=== PATIENT | female | born 1995 | race Caucasian/White ===

== ENCOUNTER 2020-04-11 14:51 | Emergency (ER) | payer OTHER ==
[2020-04-11 15:19] LABS: BASOPHILS % (AUTO) 0.6 %; EOSINOPHILS # (AUTO) 0.2 10^3/uL (0.0-0.7); EOSINOPHILS % (AUTO) 2.9 %; HGB - HEMOGLOBIN 13.1 g/dL (12.0-16.0); MEAN CORPUSCULAR HEMOGLOBIN 31.3 pg (27.0-31.0); MEAN CORPUSCULAR HGB CONC 34.5 g/dL (32.0-36.0); MEAN CORPUSCULAR VOLUME 90.9 fL (81.0-99.0); MEAN PLATELET VOLUME 9.7 fL (7.9-10.8); MONOCYTES # (AUTO) 0.5 10^3/uL (0.0-1.0); MONOCYTES % (AUTO) 8.2 %; NEUTROPHILS # (AUTO) 3.5 10^3/uL (1.5-6.6); NEUTROPHILS % (AUTO) 56.1 %; PLT - PLATELET COUNT 258 10^3/uL (130-450); RED BLOOD COUNT 4.18 10^6/uL (4.20-5.40); RED CELL DISTRIBUTION WIDTH 12.2 % (12.0-15.0); WHITE BLOOD COUNT 6.2 x10^3/uL (4.8-10.8)
--- NOTE | 2020-04-11 15:23 | ED Physician Documentation ---
History of Present Illness - Stated complaint Stated Complaint: FEMALE / BLEEDING - Chief complaint Chief Complaint: Abd Pain - History obtained from History obtained from: Patient - History of Present Illness Timing: How many weeks ago (6) Pain level max: 0 Pain level now: 0 - Additonal information Additional information: Patient is a 25-year-old female who presents to the emergency department after having a "chemical " At [facility] approximately 6 weeks ago. She had an ultrasound 4 weeks ago which apparently showed some possible retained clot. She has had intermittent vaginal bleeding since that time. Today she had a large clot fall onto the toilet followed by heavy bleeding. She became lightheaded. No chest pain. No difficulty breathing. Nothing makes it better or worse. She is currently on Clary for control. No fevers. No vaginal discharge. 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: Yes - POLST Patient has POLST: No PD ED PE NORMAL - Vitals Vital signs reviewed: Yes - General General: Alert and oriented X 3, No acute distress, Well developed/nourished - HEENT HEENT: PERRL, Moist mucous membranes - Neck Neck: Supple, no meningeal sign - Cardiac Cardiac: RRR, Strong equal pulses - Respiratory Respiratory: No respiratory distress, Clear bilaterally - Abdomen Abdomen: Soft, Non tender, Non distended - 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 Clots removed. No further active bleeding.) - Derm Derm: Warm and dry - Extremities Extremities: No edema, No calf tenderness / cord - Neuro Neuro: Alert and oriented X 3 - Psych Psych: Normal mood, Normal affect Results - Vitals Vitals: Vital Signs - 24 hr 04/11/20 04/11/20 04/11/20 14:56 15:19 16:35 Temperature 36.5 C Heart Rate 78 73 74 Respiratory 14 15 18 Rate Blood Pressure 123/69 95/74 108/65 O2 Saturation 98 98 100 Oxygen O2 Source Room air - Labs Labs: Laboratory Tests 04/11/20 04/11/20 04/11/20 15:11 15:11 15:11 WBC 6.2 RBC 4.18 L Hgb 13.1 Hct 38.0 MCV 90.9 MCH 31.3 H MCHC 34.5 RDW 12.2 Plt Count 258 MPV 9.7 Neut # (Auto) 3.5 Lymph # (Auto) 2.0 [place] # (Auto) 0.5 Eos # (Auto) 0.2 Baso # (Auto) 0.0 Absolute Nucleated RBC 0.00 Nucleated RBC % 0.0 Sodium 137 Potassium 3.7 Chloride 103 Carbon Dioxide 25 Anion Gap 9.0 BUN 16 Creatinine 0.6 Estimated GFR (MDRD) 121 Glucose 92 Calcium 9.0 Total Bilirubin 0.5 AST 26 ALT 37 Alkaline Phosphatase 54 Total Protein 8.0 Albumin 4.1 Globulin 3.9 Albumin/Globulin Ratio 1.1 Lipase 41 HCG, Quant 11.72 Urine Color Urine Clarity Urine pH Ur Specific [place] Urine Protein Urine Glucose (UA) Urine Ketones Urine Occult Blood Urine Nitrite Urine Bilirubin Urine Urobilinogen Ur Leukocyte Esterase Urine RBC Urine WBC Ur Squamous Epith Cells Urine Bacteria Ur Microscopic Review Urine Culture Comments 04/11/20 15:11 WBC RBC Hgb Hct MCV MCH MCHC RDW Plt Count MPV Neut # (Auto) Lymph # (Auto) [place] # (Auto) Eos # (Auto) Baso # (Auto) Absolute Nucleated RBC Nucleated RBC % Sodium Potassium Chloride Carbon Dioxide Anion Gap BUN Creatinine Estimated GFR (MDRD) Glucose Calcium Total Bilirubin AST ALT Alkaline Phosphatase Total Protein Albumin Globulin Albumin/Globulin Ratio Lipase HCG, Quant Urine Color RED/BLOODY Urine Clarity CLOUDY Urine pH 8.5 H Ur Specific [place] 1.020 Urine Protein 30 H Urine Glucose (UA) NEGATIVE Urine Ketones NEGATIVE Urine Occult Blood LARGE H Urine Nitrite NEGATIVE Urine Bilirubin NEGATIVE Urine Urobilinogen 1 (NORMAL) Ur Leukocyte Esterase NEGATIVE Urine RBC TNTC H Urine WBC 0-3 Ur Squamous Epith Cells NONE SEEN Urine Bacteria Rare Ur Microscopic Review INDICATED Urine Culture Comments NOT INDICATED PD MEDICAL DECISION MAKING - ED course Complexity details: reviewed results, re-evaluated patient, considered differential, d/w patient, d/w hearing consultant (Dr. Parekh) ED course: `Patient with what appears to be dysfunctional uterine bleeding after a chemical 6 weeks ago. hCG is 11. Discussed the case with OB, they recommend follow-up in 1 week for repeat hCG to make sure it goes to 0. No uterine tenderness. No fever. No evidence of retained products or endometritis. She did have an ultrasound 2 weeks after the . Patient counseled regarding signs and symptoms for which I believe and urgent re-evaluation would be necess cheri. Patient with good understanding of and agreement to plan and is comfortable going home at this time This document was made in part using voice recognition software. While efforts are made to proofread this document, sound alike and grammatical errors may occur. Departure - Departure Disposition: 01 Home, Self Care Clinical Impression: Dysfunctional uterine bleeding Condition: Good Instructions: ED Bleed Irregular Vaginal Follow-Up: [facility] [Provider Group] - Within 1 week Comments: Follow-up with gynecology within 1 week for repeat hCG. Return if you worsen. This should continue to improve. I spoke with Dr. Izabella bailey. Discharge Date/Time: 04/11/20 16:55
[2020-04-11 15:29] LABS: BILIRUBIN,URINE NEGATIVE (NEGATIVE); GLUCOSE, URINE (UA) NEGATIVE (NEGATIVE); KETONES,URINE (UA) NEGATIVE (NEGATIVE); LEUKOCYTE ESTERASE, URINE NEGATIVE (NEGATIVE); NITRITE,URINE NEGATIVE (NEGATIVE); OCCULT BLOOD,URINE LARGE (NEGATIVE); PH,URINE 8.5 PH (5.0-7.5); PROTEIN,URINE 30 mg/dL (NEGATIVE); UROBILINOGEN,URINE 1 (NORMAL) E.U./dL (NORMAL)
[2020-04-11 15:32] LABS: ALBUMIN 4.1 g/dL (3.2-5.5); ALBUMIN/GLOBULIN RATIO 1.1 (1.0-2.2); BILIRUBIN,TOTAL 0.5 mg/dL (0.2-1.0); CREATININE 0.6 mg/dL (0.4-1.0)
[2020-04-11 15:41] LABS: BACTERIA,URINE Rare /HPF (None Seen); CLARITY,URINE CLOUDY (CLEAR); RBC,URINE TNTC /HPF (0-5); SQUAMOUS EPITHELIAL CELL,UR NONE SEEN (<= Few)
[2020-04-11 16:35] VITALS: BP 108/65
== END 2020-04-11 16:55 | disposition home or self-care (01) ==
LOC: ED 14:51
DX: N93.8 Other specified abnormal uterine and vaginal bleeding (principal); Z98.890 Other specified postprocedural states
CPT/HCPCS: 36415; 80053; 81001; 81003; 83690; 84702; 85025; 86900; 86901; 87086; 99283; 99284

== ENCOUNTER 2020-10-07 08:00 | Outpatient (CLI) | payer OTHER ==
[2020-10-07 17:44] LABS: BILIRUBIN,URINE NEGATIVE (NEGATIVE); GLUCOSE, URINE (UA) NEGATIVE (NEGATIVE); KETONES,URINE (UA) NEGATIVE (NEGATIVE); LEUKOCYTE ESTERASE, URINE NEGATIVE (NEGATIVE); NITRITE,URINE NEGATIVE (NEGATIVE); OCCULT BLOOD,URINE NEGATIVE (NEGATIVE); PH,URINE 6.5 PH (5.0-7.5); PROTEIN,URINE NEGATIVE (NEGATIVE); UROBILINOGEN,URINE 0.2 (NORMAL) E.U./dL (NORMAL)
[2020-10-07 17:48] LABS: CLARITY,URINE SL. CLOUDY (CLEAR)
[2020-10-07 17:58] LABS: BACTERIA,URINE Moderate /HPF (None Seen); RBC,URINE 0-5 /HPF (0-5); SQUAMOUS EPITHELIAL CELL,UR MANY Squamous (<= Few)
== END 2020-10-07 23:59 | disposition home or self-care (01) ==
LOC: LAB.R 08:00
PROVIDERS: ATTEND Nurse Practitioner Obstetrics & Gynecology
DX: Z32.01 Encounter for pregnancy test, result positive (principal)
CPT/HCPCS: 81001; 81003; 87086

== ENCOUNTER 2020-10-21 07:12 | Outpatient (CLI) | payer OTHER ==
--- NOTE | 2020-10-21 10:27 | Ultrasound Report ---
PROCEDURE: OB First Trimester INDICATIONS: POSITIVE TEST OUTSIDE/PRIOR DATING DATA: Last menstrual period (LMP): 08/08/2020. LMP-based estimated date of delivery (KATHRIN): 05/15/2020. First dating scan (date and location): 10/21/2020. Estimated date of delivery (KATHRIN) from first dating scan: 05/22/2021. TECHNIQUE: Real-time scanning was performed of the fetus and maternal pelvic organs, with image documentation. COMPARISON: None FINDINGS: Embryo: Single live intrauterine with crown-rump length measuring 2.8 cm corresponding to 9 weeks 4 days. Heart rate is identified at 169 bpm. Small focus of subchorionic hemorrhage is identi fied measuring 17 x 8 x 7 mm. Measurement variability in dating: +/- 4 weeks by LMP, +/- 7 days by mean sac diameter (use before 6 weeks gestation if crown-rump length not able to be measured), +/- 5 days by crown-rump length (6-12 weeks gestation). Maternal organs: Ovaries demonstrate a right corpus luteal cyst.. Nabothian cyst is noted. Limited images through the kidneys demonstrate no hydronephrosis. IMPRESSION: 1. Single live intrauterine with ultrasound gestational age of 9 weeks 4 days corresponding to ultrasound KATHRIN of 05/22/2021. 2. Small subchorionic hemorrhage. 3. Recommend follow-up imaging at 20-22 weeks for dates and anatomy. Reviewed by: Shannan Price MD on 10/21/2020 10:26 AM PST Approved by: Shannan Price MD on 10/21/2020 10:26 AM PST Station ID: [id number]
== END 2020-10-21 07:13 | disposition home or self-care (01) ==
LOC: DI 07:12
PROVIDERS: ATTEND Nurse Practitioner Obstetrics & Gynecology
DX: Z32.01 Encounter for pregnancy test, result positive (principal)

== ENCOUNTER 2020-10-25 08:00 | Outpatient (CLI) | payer OTHER ==
[2020-10-26 22:06] LABS: TRICHOMONAS VAGINALIS DNA NEGATIVE (NEGATIVE)
== END 2020-10-26 23:59 | disposition home or self-care (01) ==
LOC: LAB.R 08:00
PROVIDERS: ATTEND Obstetrics & Gynecology
DX: Z11.3 Encounter for screening for infections with a predominantly sexual mode of transmission (principal)
CPT/HCPCS: 87491; 87591; 87661

== ENCOUNTER 2020-11-08 10:06 | Emergency (ER) | payer OTHER ==
--- NOTE | 2020-11-08 10:19 | ED Physician Documentation ---
PD HPI NVD - Stated complaint Stated Complaint: HEAD PX - Chief complaint Chief Complaint: Neuro - History obtained from History obtained from: Patient - History of Present Illness Timing - onset: How many days ago (3) Timing - duration: Days (3) Timing - details: Gradual onset, Still present Associated symptoms: Loss of appetite, Other (onset of left headache along with the N/V, some photosensitivity.). No: Fever, Abdominal pain Improved by: No: Vomiting Worsened by: Eating, Other (lights) Similar symptoms before: Diagnosis (occasional migraines in the past. This is first with this .) Recently seen: Not recently seen Review of Systems Constitutional: denies: Fever, Chills Nose: denies: Rhinorrhea / runny nose, Congestion Throat: denies: Sore throat Respiratory: denies: Cough GI: reports: Nausea, Vomiting. denies: Abdominal Pain, Diarrhea : reports: Now EGA (12). denies: Discharge, Vaginal bleeding Skin: denies: Rash, Lesions Neurologic: reports: Generalized weakness, Headache. 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 - Present Medications Home Medications: Ambulatory Orders Medication Instructions Recorded Confirmed HYDROcod/ACETAM 5/325 [Seney 5/325] 1 ea PO Q6H PRN #8 tablet 11/08/20 Ondansetron Odt [Zofran] 4 mg TL Q6H PRN #10 tablet 11/08/20 No122/Iron/Folic Acid 1 each PO DAILY 11/08/20 11/08/20 [ Multi Tablet] - Allergies Allergies/Adverse Reactions: Allergies Allergy/AdvReac Type Severity Reaction Status Date / Time No Known Drug Allergies Allergy Verified 11/08/20 10:13 - Social History Does the pt smoke?: No Smoking Status: Never smoker Does the pt drink ETOH?: No Does the pt have substance abuse?: No - Immunizations Immunizations are current?: Yes - POLST Patient has POLST: No PD ED PE NORMAL - Vitals Vital signs reviewed: Yes - General General: Alert and oriented X 3, No acute distress (does appear some discomfort due to headache. ), Well developed/nourished - HEENT HEENT: Pharynx benign. No: Moist mucous membranes - Neck Neck: Supple, no meningeal sign, No adenopathy - Cardiac Cardiac: RRR, No murmur - Respiratory Respiratory: Clear bilaterally - Abdomen Abdomen: Normal bowel sounds, Soft, Non distended, No organomegaly (some suprapubic fullness c/w early . Bedside U/S showing IUP with size c/w dates, good FHR and movement. No free fluid in pelvis. ) Results - Vitals Vitals: Oxygen O2 Source Room air - Labs Labs: Laboratory Tests 11/08/20 11/08/20 11/08/20 10:15 10:15 10:28 WBC 7.2 RBC 4.30 Hgb 12.8 Hct 37.8 MCV 87.9 MCH 29.8 MCHC 33.9 RDW 13.2 Plt Count 204 MPV 9.5 Neut # (Auto) 5.0 Lymph # (Auto) 1.4 L [place] # (Auto) 0.5 Eos # (Auto) 0.2 Baso # (Auto) 0.0 Absolute Nucleated RBC 0.00 Nucleated RBC % 0.0 Sodium 138 Potassium 3.3 L Chloride 106 Carbon Dioxide 23 Anion Gap 9.0 BUN 11 Creatinine 0.5 Estimated GFR (MDRD) 149 Glucose 96 Calcium 9.3 Magnesium 1.9 Total Bilirubin 0.4 AST 18 ALT 14 Alkaline Phosphatase 46 Total Protein 7.2 Albumin 4.1 Globulin 3.1 Albumin/Globulin Ratio 1.3 Urine Color YELLOW Urine Clarity HAZY Urine pH 6.0 Ur Specific [place] 1.025 Urine Protein NEGATIVE Urine Glucose (UA) NEGATIVE Urine Ketones NEGATIVE Urine Occult Blood TRACE-INTA Urine Nitrite NEGATIVE Urine Bilirubin NEGATIVE Urine Urobilinogen 0.2 (NORMAL) Ur Leukocyte Esterase TRACE H Urine RBC 0-5 Urine WBC 0-3 Ur Squamous Epith Cells MOD Squamous H Urine Bacteria Moderate H Ur Microscopic Review INDICATED Urine Culture Comments NOT INDICATED PD MEDICAL DECISION MAKING - ED course Complexity details: reviewed results (bedside U/S showing noral IUP size for dates, with movement and normal FHR. No free fluid. ), re-evaluated patient (feeling near resolution of ROUSE and nausea with meds targeted to migraine. ), considered differential, d/w patient Departure - Departure Disposition: 01 Home, Self Care Clinical Impression: Dehydration Migraine headache Qualifiers: Migraine type: unspecified Status migrainosus presence: with status migrainosus Intractability: not intractable Qualified Code(s): G43.901 - Migraine, unspecified, not intractable, with status migrainosus Qualifiers: Weeks of gestation: 12 weeks Qualified Code(s): Z3A.12 - 12 weeks gestation of Condition: Stable Record reviewed to determine appropriate education?: Yes Instructions: ED Headache Migraine Follow-Up: CHETAN ZIMMERMAN ARNP [Primary Care Provider] - Prescriptions: HYDROcod/ACETAM 5/325 [Seney 5/325] 1 ea PO Q6H PRN #8 tablet PRN Reason: Pain Ondansetron Odt [Zofran] 4 mg TL Q6H PRN #10 tablet PRN Reason: Nausea / Vomiting Comments: Small frequent fluids and maintain hydration. Ondansetron or Unisom if needed for nausea. You can use ibuprofen periodically if needed for headache up to 20 weeks gestation . Tylenol can be used throughout . Add hydrocodone if needed for episodic migraine with worst headache. Use in conjunction with the Zofran and ibuprofen if still applicable with your . Your basic blood tests are good and urine test is normal. Blood pressure was normal here as well. Bedside ultrasound showed normal heart rate and movement of your . Discharge Date/Time: 11/08/20 12:51
[2020-11-08] MEDS ORDERED: KETOROLAC 30 MG/ML VIAL IVP STA (10:33)
[2020-11-08] MEDS ORDERED: PROCHLORPERAZINE 10 MG/2 ML VIAL IVP STA (10:33)
[2020-11-08] MEDS ORDERED: SODIUM CHLORIDE 0.9% 1,000 ML IV STA ×2 (10:33→10:34)
[2020-11-08] MEDS ORDERED: DEXAMETHASONE 10 MG/ML VIAL IVP STA (10:34)
[2020-11-08 10:41] LABS: BILIRUBIN,URINE NEGATIVE (NEGATIVE); GLUCOSE, URINE (UA) NEGATIVE (NEGATIVE); KETONES,URINE (UA) NEGATIVE (NEGATIVE); LEUKOCYTE ESTERASE, URINE TRACE (NEGATIVE); NITRITE,URINE NEGATIVE (NEGATIVE); OCCULT BLOOD,URINE TRACE-INTA (NEGATIVE); PROTEIN,URINE NEGATIVE (NEGATIVE); UROBILINOGEN,URINE 0.2 (NORMAL) E.U./dL (NORMAL)
[2020-11-08 10:42] LABS: CLARITY,URINE HAZY (CLEAR)
[2020-11-08 10:45] LABS: BASOPHILS % (AUTO) 0.4 %; EOSINOPHILS # (AUTO) 0.2 10^3/uL (0.0-0.7); EOSINOPHILS % (AUTO) 2.1 %; HCT - HEMATOCRIT 37.8 % (37.0-47.0); HGB - HEMOGLOBIN 12.8 g/dL (12.0-16.0); LYMPHOCYTES # (AUTO) 1.4 10^3/uL (1.5-3.5); LYMPHOCYTES % (AUTO) 19.8 %; MEAN CORPUSCULAR HEMOGLOBIN 29.8 pg (27.0-31.0); MEAN CORPUSCULAR HGB CONC 33.9 g/dL (32.0-36.0); MEAN CORPUSCULAR VOLUME 87.9 fL (81.0-99.0); MEAN PLATELET VOLUME 9.5 fL (7.9-10.8); MONOCYTES # (AUTO) 0.5 10^3/uL (0.0-1.0); MONOCYTES % (AUTO) 7.1 %; NEUTROPHILS % (AUTO) 70.2 %; PLT - PLATELET COUNT 204 10^3/uL (130-450); RED CELL DISTRIBUTION WIDTH 13.2 % (12.0-15.0); WHITE BLOOD COUNT 7.2 x10^3/uL (4.8-10.8)
[2020-11-08 10:55] LABS: ALBUMIN 4.1 g/dL (3.2-5.5); ALBUMIN/GLOBULIN RATIO 1.3 (1.0-2.2); BILIRUBIN,TOTAL 0.4 mg/dL (0.2-1.0); CALCIUM 9.3 mg/dL (8.5-10.3); CREATININE 0.5 mg/dL (0.4-1.0); MAGNESIUM 1.9 mg/dL (1.7-2.8); POTASSIUM 3.3 mmol/L (3.5-5.0); TOTAL PROTEIN 7.2 g/dL (6.7-8.2)
[2020-11-08 11:02] LABS: WBC,URINE 0-3 /HPF (0-5)
[2020-11-08 11:03] LABS: BACTERIA,URINE Moderate /HPF (None Seen); RBC,URINE 0-5 /HPF (0-5); SQUAMOUS EPITHELIAL CELL,UR MOD Squamous (<= Few)
[2020-11-08 12:10] VITALS: BP 104/69
== END 2020-11-08 12:51 | disposition home or self-care (01) ==
LOC: ED 10:06
DX: O99.351 Diseases of the nervous system complicating pregnancy, first trimester (principal); G43.901 Migraine, unspecified, not intractable, with status migrainosus; O99.281 Endocrine, nutritional and metabolic diseases complicating pregnancy, first trimester; E86.0 Dehydration; Z3A.12 12 weeks gestation of pregnancy
CPT/HCPCS: 36415; 80053; 81001; 81003; 83735; 85025; 87086; 96361; 96374; 96375; 99283

== ENCOUNTER 2020-12-09 12:50 | Outpatient (CLI) | payer OTHER | END 2020-12-09 23:59 | LOC: LAB.WCP 12:50 | PROVIDERS: ATTEND Obstetrics & Gynecology | DX: Z34.80 Encounter for supervision of other normal pregnancy, unspecified trimester (principal) | CPT/HCPCS: 36415; 81220; 81243; 81329; 81511; 81599 ==

== ENCOUNTER 2020-12-20 08:00 | Outpatient (CLI) | payer OTHER | END 2020-12-20 23:59 | disposition home or self-care (01) | LOC: LAB.R 08:00 | PROVIDERS: ATTEND Obstetrics & Gynecology | DX: Z34.80 Encounter for supervision of other normal pregnancy, unspecified trimester (principal); Z3A.00 Weeks of gestation of pregnancy not specified | CPT/HCPCS: 87086 ==

== ENCOUNTER 2021-01-03 08:45 | Outpatient (CLI) | payer OTHER ==
--- NOTE | 2021-01-03 15:50 | Ultrasound Report ---
PROCEDURE: OB Detailed Eval INDICATIONS: SCREENING OUTSIDE/PRIOR DATING DATA: Last menstrual period (LMP): 08/08/2020. LMP-based estimated date of delivery (KATHRIN): 05/15/2021. First dating scan (date and location): 10/21/2020. Estimated date of delivery (KATHRIN) from first dating scan: 05/22/2021. TECHNIQUE: Real-time scanning was performed of the fetus, with image documentation and biometric measurements. Endovaginal scanning: Not needed COMPARISON: Prior 10/21/2020 OB ultrasound FINDINGS: General: A single living intrauterine gestation is present. Presentation: Vertex Placenta: Placental position is fundal, without previa. Amniotic fluid index: 14.5 cm, normal for gestational age. heart rate: 144 beats per minute. Maternal cervical canal: 4.3 cm long; normal length is 2.5 cm or more. biometrics: Biparietal diameter: 4.5 cm, 19 weeks 5 days Head circumference: Seen 0.9 cm, 19 weeks 4 days Abdominal circumference: 14.9 cm, 20 weeks 1 day Femur length: 3.1 cm, 19 weeks 5 days Estimated gestational age from initial scan: 20 weeks 1 day. Composite gestational age from present scan: 19 weeks 5 days Estimated weight and percentile: 321 g, 33rd percentile Measurement variability in biometric dating: +/- 10 days from 12-20 weeks gestation, +/- 2 weeks from 20-30 weeks gestation, +/- 3 weeks at 30 weeks gestation or later. Anatomic survey: Neuro: Ventricles are normal at less than 10 mm. Cisterna magna is normal at 3-11 mm. Cerebellum i s normal in size and morphology. Nuchal skin fold: Normal at less than 6 mm between 14 and 20 weeks gestational age. Face: Nose and lips, facial profile are normal. Spine: No evidence for spina bifida. Heart: 4-chambered heart is present, with normal ventricular outflow tracts. Diaphragm: Diaphragm is intact. Stomach: Left-sided stomach is present. Kidneys: No hydronephrosis. Normal is less than 5 mm in 2nd trimester, less than 7 mm in 3rd trimester. Cord: 3 vessel cord has orthotopic insertion. Bladder: Normal in size. Extremities: All 4 extremities are visualized. IMPRESSION: Appropriate interval growth, no anomaly found. The delivery date is projected to be centered on 05/22/2021, +/- 5 days. Reviewed by: Chris Louis MD on 01/03/2021 3:48 PM PST Approved by: Chris Louis MD on 01/03/2021 3:48 PM PST Station ID: [id number]
== END 2021-01-03 08:46 | disposition home or self-care (01) ==
LOC: DI 08:45
PROVIDERS: ATTEND Obstetrics & Gynecology
DX: Z34.82 Encounter for supervision of other normal pregnancy, second trimester (principal); Z36.89 Encounter for other specified antenatal screening

== ENCOUNTER 2021-01-26 08:00 | Outpatient (CLI) | payer OTHER ==
[2021-01-26 18:28] LABS: HCT - HEMATOCRIT 33.2 % (37.0-47.0); HGB - HEMOGLOBIN 10.7 g/dL (12.0-16.0); MEAN CORPUSCULAR HEMOGLOBIN 30.1 pg (27.0-31.0); MEAN CORPUSCULAR HGB CONC 32.2 g/dL (32.0-36.0); MEAN CORPUSCULAR VOLUME 93.3 fL (81.0-99.0); MEAN PLATELET VOLUME 10.6 fL (7.9-10.8); RED BLOOD COUNT 3.56 10^6/uL (4.20-5.40); RED CELL DISTRIBUTION WIDTH 13.4 % (12.0-15.0); WHITE BLOOD COUNT 7.8 x10^3/uL (4.8-10.8)
== END 2021-01-26 23:59 | disposition home or self-care (01) ==
LOC: LAB.WCP 08:00
PROVIDERS: ATTEND Obstetrics & Gynecology
DX: Z34.80 Encounter for supervision of other normal pregnancy, unspecified trimester (principal); Z36.89 Encounter for other specified antenatal screening
CPT/HCPCS: 36415; 82950; 85025; 85027; 86850; 86900; 86901

== ENCOUNTER 2021-02-01 16:30 | Outpatient (CLI) | payer OTHER ==
[2021-02-01 16:39] VITALS: BP 122/70
[2021-02-01 17:00] LABS: BILIRUBIN,URINE NEGATIVE (NEGATIVE); CLARITY,URINE CLEAR (CLEAR); GLUCOSE, URINE (UA) NEGATIVE (NEGATIVE); KETONES,URINE (UA) NEGATIVE (NEGATIVE); LEUKOCYTE ESTERASE, URINE NEGATIVE (NEGATIVE); NITRITE,URINE NEGATIVE (NEGATIVE); OCCULT BLOOD,URINE NEGATIVE (NEGATIVE); PH,URINE 7.5 PH (5.0-7.5); PROTEIN,URINE NEGATIVE (NEGATIVE); UROBILINOGEN,URINE 0.2 (NORMAL) E.U./dL (NORMAL)
--- NOTE | 2021-02-01 17:54 | HISTORY & PHYSICAL EXAMINATION ---
DATE OF SERVICE: 02/01/2021 Physician: Taiwo Parekh MD IDENTIFICATION: The patient is a 25-year-old AB1 female whose EDC is 05/15/2021, making her 26 weeks. CHIEF COMPLAINT: Headache, [place] and feeling anxious. HISTORY OF PRESENT ILLNESS: The patient this morning developed headache, for which she took Tylenol. It took a while for this to resolve. She is also complaining of some left lower quadrant pain and a feeling of anxiety and feeling uneasy. She is having some mild [place], which she notes. The remainder of her OB care has been unremarkable. She has previously had a C- section for CPD. Otherwise, this has been unremarkable. Her labs show her to be Rh positive. She does have difficulty with a stressful job. 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 PAST MEDICAL HISTORY: The patient denies any hypertensive, diabetic, cardiac or pulmonary disease.. SURGICAL HISTORY: Positive for a with her first delivery. ALLERGIES: NONE KNOWN. CURRENT MEDICATIONS 1. Vitamin C. 2. Iron sulfate. 3. Metoclopramide. 4. As well as vitamins. HABITS: Patient denies use of alcohol, tobacco, street or addictive drugs. PHYSICAL EXAM GENERAL: Patient is well-developed, well-nourished female. Blood pressures were noted to be normal. HEENT: Upon inspecting the eyes, she has some anisocoria with the left eye being roughly 2 mm larger than the right. The patient states this is more prominent when she is very tired, but this is longstanding. HEART: Regular rate and rhythm without murmurs. LUNGS: Lung teixeira are clear without rales or wheezes. BACK: No spinal or CVA tenderness noted. ABDOMEN: Gravid, 27 cm. She has tenderness in the left groin area, which was accentuated with motion rolling. FFN was obtained, following which a pelvic examination revealed a cervix, which was long, closed, presenting part was high and not engaged. She had a strip, which showed no evidence of any decelerations. It was nonreactive, but concordant for gestational age. IMPRESSION 1. [place] without any cervical change. 2. Headache, which has eventually responded to Tylenol. 3. Round ligament pain. PLAN: FFN was obtained and is currently pending at this time. I do not see any threatening issues. She has some round ligament syndrome. She has a fair amount of stress from her job. At this point, we will allow her to go home as she has a child to take care of. We will call her should the FFN be positive. I have informed her that a positive FFN is not a predictive value, but that a negative is more desirable. TD: 02/01/2021 17:44 hannah KEN
--- NOTE | 2021-03-01 10:01 | PROCEDURE REPORT ---
- HPI Diagnosis/Indication for NST: Other (Round Ligament Syndrom, [place] Clint contractions) Current EDU 05/15/21 Gestation 25 Weeks and 2 Days 3 Para 1 Vital Signs Temperature 36.6 C 02/01/21 16:37 Heart Rate 90 02/01/21 16:37 Respiratory Rate 18 02/01/21 16:37 Blood Pressure 122/70 02/01/21 16:37 O2 Saturation 100 02/01/21 16:37 Temperature 36.6 C 02/01/21 16:37 Heart Rate 90 02/01/21 16:37 Respiratory Rate 18 02/01/21 16:37 Blood Pressure 122/70 02/01/21 16:37 O2 Saturation 100 02/01/21 16:37 - NST Procedure NST Procedure Start Date 02/01/21 Start Time 16:35 Stop Time 17:05 Vibroacoustic Stimulation Used No Patient States Movement Yes - Results and Plan Findings/Impression: Appropriate for EGA Plan: Followup routine. Cautions given
== END 2021-02-01 17:45 | disposition home or self-care (01) ==
LOC: WFO 16:30 → FBP 16:31 → WFO 17:45
PROVIDERS: ATTEND Obstetrics & Gynecology
DX: O47.02 False labor before 37 completed weeks of gestation, second trimester (principal); Z3A.26 26 weeks gestation of pregnancy; O99.891 Other specified diseases and conditions complicating pregnancy; R51.9 Headache, unspecified; R10.2 Pelvic and perineal pain
CPT/HCPCS: 59025; 81001; 81003; 82731; 87086; 99213

== ENCOUNTER 2021-04-03 11:16 | Outpatient (CLI) | payer OTHER ==
[2021-04-03 12:26] LABS: ALBUMIN 3.3 g/dL (3.2-5.5); ALBUMIN/GLOBULIN RATIO 0.9 (1.0-2.2); ALKALINE PHOSPHATASE 85 IU/L (42-121); ALT ALANINE AMINOTRANSFERASE 17 IU/L (10-60); AST ASPARTATE AMINOTRANSFERASE 17 IU/L (10-42); BILIRUBIN,TOTAL 0.5 mg/dL (0.2-1.0); BUN - BLOOD UREA NITROGEN < 5 mg/dL (6-20); CALCIUM 10.1 mg/dL (8.5-10.3); CARBON DIOXIDE - CO2 23 mmol/L (21-32); CHLORIDE 104 mmol/L (101-111); CREATININE 0.7 mg/dL (0.4-1.0); GFR - MDRD 100 (>89); GLUCOSE 80 mg/dL (70-100); POTASSIUM 3.4 mmol/L (3.5-5.0); SODIUM 134 mmol/L (135-145)
[2021-04-06 16:31] LABS: CHENODEOXYCHOLIC ACID 0.5 umol/L (< OR = 3.1); CHOLIC ACID 0.5 umol/L (< OR = 1.8); DEOXYCHOLIC ACID 0.9 umol/L (< OR = 2.4); TOTAL BILE ACIDS 1.9 umol/L (< OR = 6.8)
== END 2021-04-03 11:17 | disposition home or self-care (01) ==
LOC: LAB 11:16
PROVIDERS: ATTEND Obstetrics & Gynecology
DX: O26.619 Liver and biliary tract disorders in pregnancy, unspecified trimester (principal)
CPT/HCPCS: 36415; 80053; 82542

== ENCOUNTER 2021-04-05 10:25 | Observation (INO) | payer OTHER ==
[2021-04-05] MEDS ORDERED: ACETAMINOPHEN 500 MG TABLET PO PRN (11:43)
[2021-04-05] MEDS ORDERED: oxyCODONE 5 MG TABLET PO PRN (12:57)
[2021-04-05 13:36] LABS: CALCIUM, IONIZED 1.26 mmol/L (1.15-1.33); VBG PH 7.453 (7.31-7.41)
[2021-04-05 13:42] LABS: BASOPHILS % (AUTO) 0.3 %; EOSINOPHILS # (AUTO) 0.2 10^3/uL (0.0-0.7); EOSINOPHILS % (AUTO) 2.5 %; HCT - HEMATOCRIT 29.8 % (37.0-47.0); LYMPHOCYTES # (AUTO) 1.4 10^3/uL (1.5-3.5); MEAN CORPUSCULAR HEMOGLOBIN 28.8 pg (27.0-31.0); MEAN CORPUSCULAR HGB CONC 33.6 g/dL (32.0-36.0); MEAN CORPUSCULAR VOLUME 85.9 fL (81.0-99.0); MEAN PLATELET VOLUME 10.4 fL (7.9-10.8); MONOCYTES % (AUTO) 11.2 %; NEUTROPHILS # (AUTO) 6.5 10^3/uL (1.5-6.6); NEUTROPHILS % (AUTO) 70.3 %; PLT - PLATELET COUNT 174 10^3/uL (130-450); RED BLOOD COUNT 3.47 10^6/uL (4.20-5.40); RED CELL DISTRIBUTION WIDTH 13.7 % (12.0-15.0); WHITE BLOOD COUNT 9.2 x10^3/uL (4.8-10.8)
[2021-04-05 13:48] LABS: ALBUMIN/GLOBULIN RATIO 0.9 (1.0-2.2); BILIRUBIN,TOTAL 0.6 mg/dL (0.2-1.0); CALCIUM 9.5 mg/dL (8.5-10.3); CREATININE 0.7 mg/dL (0.4-1.0); POTASSIUM 2.9 mmol/L (3.5-5.0); TOTAL PROTEIN 6.5 g/dL (6.7-8.2)
[2021-04-05] MEDS ORDERED: MAGNESIUM SULFATE 2 GRAM 2 GM/50 ML BAG IV ONE (14:10)
[2021-04-05] MEDS ORDERED: FERRIC GLUCONATE 125 MG in SODIUM CHLORIDE 0.9% 100ML 100 ML IV ONE (14:30)
[2021-04-05] MEDS ORDERED: LACTATED RINGERS 1,000 ML IV ONE (14:36)
[2021-04-05] MEDS ORDERED: POTASSIUM CHLOR 10 MEQ/100 ML 10 MEQ/100 ML BAG IV SCH (15:00)
[2021-04-05] MEDS ORDERED: ONDANSETRON 4 MG/2 ML VIAL IVP PRN (15:21)
[2021-04-05] MEDS ORDERED: NS W/40 MEQ KCL 1,000 ML IV SCH (17:03)
--- NOTE | 2021-04-05 22:51 | PROVIDER PROGRESS NOTE ---
- HPI Chief Complaint: Headache Current : Current EDU 05/15/21 Gestation 34 Weeks and 2 Days 3 Para 1 Vital Signs Temperature 96.8 F L 04/05/21 14:20 Heart Rate 86 04/05/21 14:20 Respiratory Rate 16 04/05/21 14:20 Blood Pressure 102/65 04/05/21 14:20 O2 Saturation 99 04/05/21 14:20 Temperature 96.8 F L 04/05/21 14:20 Heart Rate 86 04/05/21 14:20 Respiratory Rate 16 04/05/21 14:20 Blood Pressure 102/65 04/05/21 14:20 O2 Saturation 99 04/05/21 14:20 - Procedures OB Procedure Performed: NST Diagnosis/Indication for NST: Other (Hypokalemia/ anemia/hypomagnesemia) NST Procedure: NST Procedure Start Time 16:35 Stop Time 17:05 Service Date of procedure: 04/05/21 Procedure Details: NST- Cat I tracing Findings: See labs - Plan Plan: Patient is a 26 yo at 34+2 wga who presented with severe headache. Patient presented to triage with severe headache unresponsive to tylenol. She has had emesis x4 at minimum and multiple episodes of diarrhea in the last 24-48 hours. No fevers. No cough. has had COVID vaccine. Upon presentation, CMP and CBC were drawn. She was noted to be hypokalemic with potassium of 2.9, magnesium was 1.4 and HCT was 29.8. Normal blood pressures. 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 with plan to return in February 2020 No TEVIN Safe at home Past Medical History: Asthma Anxiety Disorder Past Surgical History: section 2013 PNC HX as follows: DATING: LMP 08/08/2020 gives KATHRIN 05/15/2020 US on 10/21/2020 at 9 [id number] KATHRIN 05/22/2020 (Given that the discrepancy is not MORE than 7 days, no change in LMP dating as per ACOG CO #700) Clotrimazole for yeast infxn- resolved Triamcinolone for axillary rash- improved in axilla but now has itching all over, including palms -BA and LFTs ordered A pos /Rub imm Genetic testing: QUAD and carrier screen wnl FAS CL 4.3, EFW 33%ile, FAS wnl, posterior, 3VC Influenza 10/07/2020 TDAP complete Glucola 112 HCT 33.2 on iron supplementation HSV: denies genital HSV GBS: at 36 weeks- next visit Breast pump RX: PAP 2019 NILM MOD: repeat CS Contraception: Desires BTL Signed [facility] consents 02/21/21. Patient provided with copy. CS scheduled for 05/08/21 at 7:30 Has had COVID vaccine, interested in study ROS: As per HPI, otherwise remaining systems are negative PE: . GEN: Sitting in dark 2/2 photophobia HEAD: NCAT EYES: No scleral icterus or conjunctival injection CV: RRR RESP: CTAB, normal effort ABD: S&NT/ND, gravid PSYCH: appropriate affect NEURO: alert and oriented EXT: WWP EFM 135 mod karlo 15x15 accels no decels TOCO: irritable A/P:Patient is a 26 yo at 34+2 wga who presented with severe headache in setting of electrolyte imbalance 2/2 GI illness ROUSE related to electrolyte imbalance -Repleting with KCL 60 mEq Cannot tolerate po; giving in addon to LR as poor tolerance of IV KCl -Replete magnesium with 2g infusion -Iron infusion with ferric gluconate 250 mg -Oxycodone for headache -Reglan for nausea Cat I tracing OK to DC home once IV repletions are complete More than 6 hours of patient care provided
[2021-04-06 00:29] VITALS: BP 102/58
== END 2021-04-06 00:33 | disposition home or self-care (01) ==
LOC: WFO 10:25 → FBP 13:25 → WFO 14:12 → FBP 14:13
PROVIDERS: ADMIT Obstetrics & Gynecology; ATTEND Obstetrics & Gynecology
DX: O99.283 Endocrine, nutritional and metabolic diseases complicating pregnancy, third trimester (principal); E87.6 Hypokalemia; R51.9 Headache, unspecified; Z3A.34 34 weeks gestation of pregnancy; O34.219 Maternal care for unspecified type scar from previous cesarean delivery
CPT/HCPCS: 36415; 59025; 80053; 82330; 83735; 85025; 96365; 96366; 96375; 96376; 99213; A9270; G0378; J2916; J7120

== ENCOUNTER 2021-04-13 13:51 | Outpatient (CLI) | payer OTHER ==
[2021-04-13] MEDS ORDERED: LACTATED RINGERS 1,000 ML IV ONE (14:28)
[2021-04-13] MEDS ORDERED: METOCLOPRAMIDE 10 MG/2 ML VIAL IVP SCH (15:00)
[2021-04-13 15:06] LABS: BASOPHILS % (AUTO) 0.2 %; EOSINOPHILS # (AUTO) 0.2 10^3/uL (0.0-0.7); EOSINOPHILS % (AUTO) 1.7 %; HCT - HEMATOCRIT 30.3 % (37.0-47.0); HGB - HEMOGLOBIN 10.2 g/dL (12.0-16.0); LYMPHOCYTES # (AUTO) 1.5 10^3/uL (1.5-3.5); LYMPHOCYTES % (AUTO) 15.7 %; MEAN CORPUSCULAR HEMOGLOBIN 29.5 pg (27.0-31.0); MEAN CORPUSCULAR HGB CONC 33.7 g/dL (32.0-36.0); MEAN CORPUSCULAR VOLUME 87.6 fL (81.0-99.0); MEAN PLATELET VOLUME 10.7 fL (7.9-10.8); MONOCYTES # (AUTO) 1.2 10^3/uL (0.0-1.0); MONOCYTES % (AUTO) 12.1 %; NEUTROPHILS # (AUTO) 6.6 10^3/uL (1.5-6.6); NEUTROPHILS % (AUTO) 68.8 %; PLT - PLATELET COUNT 198 10^3/uL (130-450); RED BLOOD COUNT 3.46 10^6/uL (4.20-5.40); RED CELL DISTRIBUTION WIDTH 15.3 % (12.0-15.0); WHITE BLOOD COUNT 9.6 x10^3/uL (4.8-10.8)
[2021-04-13 15:19] LABS: ALBUMIN 3.2 g/dL (3.2-5.5); ALBUMIN/GLOBULIN RATIO 0.9 (1.0-2.2); BILIRUBIN,TOTAL 0.6 mg/dL (0.2-1.0); CALCIUM 8.8 mg/dL (8.5-10.3); CREATININE 0.6 mg/dL (0.4-1.0); MAGNESIUM 1.8 mg/dL (1.7-2.8); POTASSIUM 3.4 mmol/L (3.5-5.0); TOTAL PROTEIN 6.8 g/dL (6.7-8.2)
[2021-04-13] MEDS ORDERED: FERRIC GLUCONATE 125 MG in SODIUM CHLORIDE 0.9% 100ML 100 ML IV ONE (16:30)
[2021-04-13 17:17] VITALS: BP 99/52
--- NOTE | 2021-05-08 20:35 | PROCEDURE REPORT ---
- HPI Diagnosis/Indication for NST: Other (Headache and electrolyte imbalance, anemia) Current EDU 05/15/21 Gestation 35 Weeks and 3 Days 3 Para 1 Vital Signs Temperature 98.6 F 04/13/21 14:00 Heart Rate 70 04/13/21 14:00 Respiratory Rate 20 04/13/21 14:00 Blood Pressure 99/52 L 04/13/21 14:00 O2 Saturation 100 04/13/21 14:00 Temperature 98.4 F 04/13/21 14:07 Heart Rate 70 04/13/21 14:00 Respiratory Rate 20 04/13/21 14:00 Blood Pressure 99/52 L 04/13/21 14:00 O2 Saturation 100 04/13/21 14:00 - NST Procedure NST Procedure Start Date 04/13/21 Start Time 14:00 Stop Time 17:42 Vibroacoustic Stimulation Used Yes: MD used Patient States Movement Yes EFM 140 mod karlo 15x15 accels no decels TOCO: quiet - Results and Plan Findings/Impression: 26 yo at 35+3 wga here with headache, recent diarrhea, anemia here for eval and NST Cat I tracing Please see outpatient OB note Repleted with IV iron Electrolytes appropriate this visit CBC and CMP wnl DC to home with routine follow-up Warning signs reviewed DOS 04/13/21
--- NOTE | 2021-05-08 20:46 | PROVIDER PROGRESS NOTE ---
- HPI Current : Current EDU 05/15/21 Gestation 35 Weeks and 3 Days 3 Para 1 Vital Signs Temperature 98.6 F 04/13/21 14:00 Heart Rate 70 04/13/21 14:00 Respiratory Rate 20 04/13/21 14:00 Blood Pressure 99/52 L 04/13/21 14:00 O2 Saturation 100 04/13/21 14:00 Temperature 98.4 F 04/13/21 14:07 Heart Rate 70 04/13/21 14:00 Respiratory Rate 20 04/13/21 14:00 Blood Pressure 99/52 L 04/13/21 14:00 O2 Saturation 100 04/13/21 14:00 - Procedures NST Procedure: NST Procedure Start Date 04/13/21 Start Time 14:00 Stop Time 17:42 Vibroacoustic Stimulation Used Yes: MD used Patient States Movement Yes Service Date of procedure: 04/13/21 - Plan Plan: Patient is a 26 yo at 35+3 wga who presented with severe headache in the setting of GI symptoms Patient was seen about one week ago with severe headache unresponsive to tylenol, emesis x4 at minimum and multiple episodes of diarrhea. No fevers. No cough. has had COVID vaccine. Her CMP and CBC were assessed at that time and she was noted to be hypokalemic with potassium of 2.9, magnesium was 1.4 and HCT was 29.8. She was given electrolyte repletion. Normal blood pressures. +FM/ Denies LOF/VB/CTX Today she presents with similar symptoms. No emesis, continues to have intermittent diarrheal episodes but not as frequent or as explosive. Has a headache. 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 with plan to return in February 2020 No TEVIN Safe at home Past Medical History: Asthma Anxiety Disorder Past Surgical History: section 2013 PNC HX as follows: DATING: LMP 08/08/2020 gives KATHRIN 05/15/2020 US on 10/21/2020 at 9 [id number] KATHRIN 05/22/2020 (Given that the discrepancy is not MORE than 7 days, no change in LMP dating as per ACOG CO #700) Clotrimazole for yeast infxn- resolved Triamcinolone for axillary rash- improved in axilla but now has itching all over, including palms -BA and LFTs ordered A pos /Rub imm Genetic testing: QUAD and carrier screen wnl FAS CL 4.3, EFW 33%ile, FAS wnl, posterior, 3VC Influenza 10/07/2020 TDAP complete Glucola 112 HCT 33.2 on iron supplementation HSV: denies genital HSV GBS: at 36 weeks- next visit Breast pump RX: PAP 2019 NILM MOD: repeat CS Contraception: Desires BTL Signed [facility] consents 02/21/21. Patient provided with copy. CS scheduled for 05/08/21 at 7:30 ROS: As per HPI, otherwise remaining systems are negative PE: . VS: 98.6 70 99/52 20 100% GEN: NAD HEAD: NCAT EYES: No scleral icterus or conjunctival injection CV: RRR RESP: CTAB, normal effort ABD: S&NT/ND, gravid PSYCH: appropriate affect NEURO: alert and oriented EXT: WWP EFM 140 mod karlo 15x15 accels no decels TOCO: irritable A/P:Patient is a 26 yo at 35+3 wga who presented with headache in the setting of GI illness ROUSE improved Given iron infusion with ferric gluconate 250 mg CBC as above, showing anemia CMP wnl, oral repletion with potassium rich food recommended Cat I tracing OK to DC home once IV repletions are complete DX: Headache anemia IUP at 35+3 DOS 04/13/21
== END 2021-04-13 18:00 | disposition home or self-care (01) ==
LOC: WFO 13:51 → FBP 13:53 → WFO 18:00
PROVIDERS: ATTEND Obstetrics & Gynecology
DX: O99.891 Other specified diseases and conditions complicating pregnancy (principal); R51.9 Headache, unspecified; O99.013 Anemia complicating pregnancy, third trimester; D64.9 Anemia, unspecified; Z3A.35 35 weeks gestation of pregnancy
CPT/HCPCS: 59025; 80053; 83735; 85025; 96374; 96375; 99215; J2765; J2916; J7120; 99214

== ENCOUNTER 2021-04-17 08:00 | Outpatient (CLI) | payer OTHER | END 2021-04-17 23:59 | disposition home or self-care (01) | LOC: LAB.WC 08:00 | PROVIDERS: ATTEND Obstetrics & Gynecology | DX: Z36.85 Encounter for antenatal screening for Streptococcus B (principal) | CPT/HCPCS: 87797 ==

== ENCOUNTER 2021-04-21 10:46 | Outpatient (CLI) | payer OTHER ==
[2021-04-21 11:14] VITALS: BP 124/76
[2021-04-21 11:35] LABS: RUPTURE OF MEMBRANES PLUS NEGATIVE (NEGATIVE)
--- NOTE | 2021-05-08 20:58 | PROVIDER PROGRESS NOTE ---
- HPI Chief Complaint: Leakage of vaginal fluid Current : Current EDU 05/15/21 Gestation 36 Weeks and 4 Days 3 Para 1 Vital Signs Temperature 98.1 F 04/21/21 11:13 Heart Rate 110 H 04/21/21 11:13 Respiratory Rate 04/21/21 11:13 Blood Pressure 124/76 04/21/21 11:13 O2 Saturation 100 04/21/21 11:13 Temperature 98.1 F 04/21/21 11:13 Heart Rate 110 H 04/21/21 11:13 Respiratory Rate 04/21/21 11:13 Blood Pressure 124/76 04/21/21 11:13 O2 Saturation 100 04/21/21 11:13 - Exam GEN: NAD HEAD: NCAT EYES: No scleral icterus or conjunctival injection NECK: No cervical LAD or TM CV: RRR RESP: CTAB, normal effort ABD: S&NT/ND PSYCH: appropriate affect NEURO: alert and oriented, normal gait and coordination EXT: WWP VULVA: Normal external female genitalia. Normal Bartholin's, Samson's, urethra meatus and anus. SVE 0/0/-3 - Procedures OB Procedure Performed: NST NST Procedure: NST Procedure Start Date 04/21/21 Start Time 11:03 Stop Time 11:47 Vibroacoustic Stimulation Used No Patient States Movement Yes: NST for poss ruptured membranes/ctx EFM 150 mod karlo 15x15 accels no decels TOCO: quiet Service Date of procedure: 04/21/21 Findings: Patient is a 26 yo at 36+4 wga here with concern for ROM Reports feeling some fluid leak when getting out of bed or when moving from sitting to standing. No active fluid loss. No bleeding. No CTX No other concerns ROS: As per HPI, otherwise remaining systems are negative PE as above FFN negative SVE 0/0/-3 TOCO quiet A/P: 26 yo at 36+4 wga here for role out ROM No evidence of ROM Neg FFN Reassuring SVE Cat I tracing Warning signs reviewed. DC to home DOS: 04/21/21
== END 2021-04-21 11:59 | disposition home or self-care (01) ==
LOC: WFO 10:46 → FBP 10:48 → WFO 11:59
PROVIDERS: ATTEND Obstetrics & Gynecology
DX: Z34.83 Encounter for supervision of other normal pregnancy, third trimester (principal); Z3A.36 36 weeks gestation of pregnancy
CPT/HCPCS: 59025; 84112; 99213; 99215

== ENCOUNTER 2021-05-05 13:35 | Outpatient (CLI) | payer OTHER ==
[2021-05-05 13:59] LABS: BASOPHILS % (AUTO) 0.3 %; EOSINOPHILS # (AUTO) 0.1 10^3/uL (0.0-0.7); EOSINOPHILS % (AUTO) 1.4 %; HCT - HEMATOCRIT 32.2 % (37.0-47.0); HGB - HEMOGLOBIN 10.8 g/dL (12.0-16.0); LYMPHOCYTES # (AUTO) 1.3 10^3/uL (1.5-3.5); LYMPHOCYTES % (AUTO) 16.8 %; MEAN CORPUSCULAR HEMOGLOBIN 29.9 pg (27.0-31.0); MEAN CORPUSCULAR HGB CONC 33.5 g/dL (32.0-36.0); MEAN CORPUSCULAR VOLUME 89.2 fL (81.0-99.0); MEAN PLATELET VOLUME 9.9 fL (7.9-10.8); MONOCYTES # (AUTO) 0.8 10^3/uL (0.0-1.0); MONOCYTES % (AUTO) 10.5 %; NEUTROPHILS # (AUTO) 5.5 10^3/uL (1.5-6.6); NEUTROPHILS % (AUTO) 69.8 %; PLT - PLATELET COUNT 172 10^3/uL (130-450); RED BLOOD COUNT 3.61 10^6/uL (4.20-5.40); RED CELL DISTRIBUTION WIDTH 17.1 % (12.0-15.0); WHITE BLOOD COUNT 7.8 x10^3/uL (4.8-10.8)
== END 2021-05-05 13:36 | disposition home or self-care (01) ==
LOC: LAB 13:35
PROVIDERS: ATTEND Obstetrics & Gynecology
DX: Z01.812 Encounter for preprocedural laboratory examination (principal); O34.211 Maternal care for low transverse scar from previous cesarean delivery
CPT/HCPCS: 36415; 85025; 86850; 86900; 86901

== ENCOUNTER 2021-05-08 05:35 | Inpatient (IN) | payer OTHER ==
[~2021-05-08 05:35] MED LIST: FERRIC GLUCONATE 125 MG in SODIUM CHLORIDE 0.9% 100ML 100 ML IV ONE
[2021-05-08] MEDS ORDERED: ACETAMINOPHEN 1,000 MG/100 ML 100 ML IV ONE (05:46)
[2021-05-08] MEDS ORDERED: ceFAZolin 2 GM/50 ML 2 GM/50 ML BAG IV ONE (05:46)
[2021-05-08] MEDS ORDERED: LACTATED RINGERS 1,000 ML IV ONE ×2 (06:15→10:18)
[2021-05-08] MEDS ORDERED: LACTATED RINGERS 1,000 ML IV SCH ×2 (06:30→11:00)
[2021-05-08] MEDS ORDERED: FAMOTIDINE 20 MG/2 ML VIAL IVP ONE (07:02)
[2021-05-08] MEDS ORDERED: BUPIVACAINE 0.5% PF 30 ML VIAL ONE (07:15)
[2021-05-08] MEDS ORDERED: LIDOCAINE 2%-EPI 1:100000 20 ML MDV ONE (07:15)
--- NOTE | 2021-05-08 07:17 | ANESTHESIA ---
Pre-Anesthesia VS, & Labs - Diagnosis previous section, desires sterilization - Procedure repeat section with tubal ligation Vital Signs: Temp Pulse Resp BP Pulse Ox 36.7 C 87 16 115/72 05/08/21 05:51 05/08/21 05:51 05/08/21 05:51 05/08/21 05:51 Height: 4 ft 11 in Weight (kg): 76.204 kg Body Mass Index: 33.9 BMI Classification: Obese - NPO >8 hours - Is Patient ?: Yes - Lab Results Lab results reviewed: Yes Home Medications and Allergies Active Medications Lactated Ringer's (Lr) 1,000 mls @ 0 mls/hr IV .Q0M ZULMA Last Admin: 05/08/21 06:30 Dose: 30 mls/hr Documented by: No122/Iron/Folic Acid [ Multi Tablet] 1 each PO DAILY 11/08/20 Allergies/Adverse Reactions: Allergies Allergy/AdvReac Type Severity Reaction Status Date / Time No Known Drug Allergies Allergy Verified 11/08/20 10:13 Anes History & Medical History - Anesthetic History Anesthesia Complications: reports: Other-see comment (previous , epidural required conversion to general) Family history of Anesthesia Complications: Denies Family history of Malignant Hyperthermia: Denies - Medical History Cardiovascular: reports: None Pulmonary: reports: Asthma Gastrointestinal: reports: GERD Urinary: reports: None Neuro: reports: None Musculoskeletal: reports: None Endocrine/Autoimmune: reports: None Blood Disorders: reports: None Skin: reports: None Smoking Status: Never smoker Psychosocial: reports: Anxiety - Surgical History Gynecologic: reports: section Exam General: Alert, Oriented x3, Cooperative, No acute distress Dental: WNL Mouth Openin Fingerbreadth Neck Mobility: Normal Mallampati classification: II Respiratory: Lungs clear, Normal breath sounds, No respiratory distress, No accessory muscle use Cardiovascular: Regular rate, Normal S1, Normal S2, No murmurs Plan Anesthesia Type: General (backup GETA), Spinal, Transverse Abdominis Plane (TAP) Block Regional Block: Per Surgeon's request for Post Op pain control Consent for Procedure(s) Verified and Reviewed: Yes Code Status: Attempt Resuscitation ASA classification: 2-Mild systemic disease Is this case an emergency?: No
[2021-05-08] MEDS ORDERED: ePHEDrine 50 MG/ML VIAL IVP ONE (07:21)
[2021-05-08] MEDS ORDERED: KETOROLAC 30 MG/ML VIAL ONE (07:21)
[2021-05-08] MEDS ORDERED: ONDANSETRON 4 MG/2 ML VIAL ONE ×2 (07:21)
[2021-05-08] MEDS ORDERED: PHENYLEPHRINE 10 MG/ML VIAL ONE (07:21)
[2021-05-08] MEDS ORDERED: OXYTOCIN 10 UNIT/ML VIAL ONE (07:21)
[2021-05-08] MEDS ORDERED: ROPIVACAINE 0.5% PF 20 ML AMPULE ONE (07:28)
[2021-05-08] MEDS ORDERED: fentaNYL 100 MCG/2 ML VIAL ONE (07:28)
[2021-05-08] MEDS ORDERED: SODIUM CHLORIDE 0.9% 10 ML VIAL IVP ONE (07:28)
--- NOTE | 2021-05-08 07:41 | HISTORY & PHYSICAL EXAMINATION ---
HPI - History of Present Illness HPI Comment/Other: Patient is a 26 yo at 39+0 here for repeat CS and BTL. No changes in health hx since time of prior exam. +FM. No LOF/VB/CTX. PNC HX as follows: DATING: LMP 08/08/2020 gives KATHRIN 05/15/2020 US on 10/21/2020 at 9 [id number] KATHRIN 05/22/2020 (Given that the discrepancy is not MORE than 7 days, no change in LMP dating as per ACOG CO #700) Vertex by BSUS Clotrimazole for yeast infxn- resolved Triamcinolone for axillary rash- improved in axilla but now has itching all over, including palms -BA and LFTs ordered- wnl A pos /Rub imm Genetic testing: QUAD and carrier screen wnl FAS CL 4.3, EFW 33%ile, FAS wnl, posterior, 3VC Influenza 10/07/2020 TDAP complete Glucola 112 HCT 33.2 on iron supplementation HSV: denies genital HSV GBS: at 36 weeks- positive Breast pump RX: given PAP 2019 NILM MOD: repeat CS Contraception: Desires BTL Signed [facility] consents 02/21/21. Patient provided with copy. CS scheduled for 05/08/21 at 7:30 Past Medical History: Asthma Anxiety Disorder Past Surgical History: section 2013 PMH/PSH - Past Medical History Cardiovascular: positive: None Respiratory: positive: Asthma Neuro: positive: None Endocrine/Autoimmune: positive: None GI: positive: GERD : positive: None Musculoskeletal: positive: None Derm: positive: None MRSA Hx?: No - Past Surgical History /STRIKE PLANNING APPLICATIONS: positive: section Social & Family Hx - Social History Does the pt smoke?: No Smoking Status: Never smoker Does the pt drink ETOH?: No Does the pt have substance abuse?: No - POLST Patient has POLST: No Meds/Allgy - Home Medications Home Medications: Ambulatory Orders Medication Instructions Recorded Confirmed HYDROcod/ACETAM 5/325 [[place] 5/325] 1 ea PO Q6H PRN #8 tablet 11/08/20 Ondansetron Odt [Zofran] 4 mg TL Q6H PRN #10 tablet 11/08/20 No122/Iron/Folic Acid 1 each PO DAILY 11/08/20 11/08/20 [ Multi Tablet] - Allergies Allergies/Adverse Reactions: Allergies Allergy/AdvReac Type Severity Reaction Status Date / Time No Known Drug Allergies Allergy Verified 11/08/20 10:13 Review of Systems - Other Findings Other Findings: As per HPI,l remaining systems are negative Exam - Vital Signs Reviewed Vital Signs: Yes Vital Signs: Vital Signs x48h Temp Pulse Resp BP 05/08/21 05:51 98.1 F 87 16 115/72 - Physical Exam General Appearance: positive: No acute distress Respiratory: positive: No respiratory distress Cardiovascular: positive: Other (RR) Peripheral Pulses: positive: 2+ Abdomen: positive: Other (gravid, S&NT/ND) Skin: positive: Color nml, Warm, Dry Extremities: positive: Non-tender Neurologic/Psychiatric: positive: Oriented x3 Comments/Other: EFM 135 mod karlo 15x15 accels no decels TOCO: Quiet Impression/Plan - Problem List Problem List: Proceed with repeat CS and bilateral salpingectomy Reviewed risks/benefits/alternatives to and BTL Risks include, but are not limited to, bleeding, infection, damage to neatby tissue and organs. On average, EBL of up to 1 liter is considered within normal limits for CS. Risks of blood transfusion include infection Risk of HIV 1/2million nationwide Risk of Hepatitis 1/1 million Risks of transfusion reaction Infection risk moderate given clean/contaminated nature of procedure and IV antibiotics will be given. Damage to nearby tissue and organs including bladder, bowel, ureters, blood vessels, nerves, and fetus Damage may be noted intra-op and may be delayed until after the procedure is complete Reviewed management of complications and efforts to avoid such outcomes but reviewed that they may occur despite our best efforts Confirmed that sterlization is desired Patient understands that tubal ligation is an irreversible process that will result in future infertility Written informed consent obtained. Cefazliin 2g IV OCTOR SCDs FWB: Cat I tracing, well grown Inpatient care
[2021-05-08] MEDS ORDERED: fentaNYL 100 MCG/2 ML VIAL IT ONE (08:00)
[2021-05-08] MEDS ORDERED: NALOXONE 0.4 MG/ML VIAL IVP PRN (08:25)
[2021-05-08] MEDS ORDERED: LIDOCAINE 2%-EPI 1:100000 20 ML MDV SUBQ ONE (08:25)
[2021-05-08] MEDS ORDERED: METOCLOPRAMIDE 10 MG/2 ML VIAL IVP PRN (08:25)
[2021-05-08] MEDS ORDERED: NALBUPHINE 10 MG/ML AMP IVP PRN (08:25)
[2021-05-08] MEDS ORDERED: diphenhydrAMINE INJ 50 MG/ML VIAL IVP PRN (08:25)
[2021-05-08] MEDS ORDERED: ePHEDrine 50 MG/ML VIAL IVP PRN (08:25)
[2021-05-08] MEDS ORDERED: ONDANSETRON 4 MG/2 ML VIAL IVP PRN (08:25)
[2021-05-08] MEDS ORDERED: BUPIVACAINE 0.5% PF 30 ML VIAL SUBQ ONE (08:26)
[2021-05-08] MEDS ORDERED: DEXAMETHASONE 4 MG/ML VIAL ONE (08:59)
[2021-05-08] MEDS ORDERED: SODIUM CHLORIDE FLUSH 0.9% 10 ML SYRINGE IVP PRN (10:28)
[2021-05-08] MEDS ORDERED: OXYTOCIN/SODIUM CHLORIDE 500 ML IV PRN (10:28)
[2021-05-08] MEDS ORDERED: ONDANSETRON ODT 4 MG TABLET TL PRN (10:28)
--- NOTE | 2021-05-08 10:31 | OPERATIVE REPORT ---
Operative Report - General Admit Date: 05/08/21 Planned Procedure: Repeat low transverse and bilateral salpingectomy Pre-Op Diagnosis: IUP at 39+0 wga, hx of prior , desires sterilization Procedure Performed: Repeat low transverse and bilateral salpingectomy Post Op Diagnosis: same and delivery of term gestation - Procedure Note Primary Surgeon: Stephanie Ortega MD Secondary Surgeon: Radha Nicolas CNM Anesthesia Provider: Daisy Gomez CRNA Anesthesia Technique: Spinal Pathology: Placenta for routine discard Bilateral fallopian tubes sent to pathology as one specimen IV Fluids (mL): 2,000 Estimated Blood Loss (mL): 700 Urine Output (mL): 250 Indications: Patient is a 26 yo at 39+0 here for repeat CS and bilateral salpingectomy Findings: Uterus with heart shaped configuration with left horn disproportionately large suggesting bicornuate uterus. Mildly adherent placenta removed with manual extraction. Normal appearing ovaries. Left tubes mildly adherent to the left ovary. Complications: None - Other Other Information/Narrative: Risks benefits and alternatives of the procedure were discussed. Written informed consent was obtained. Patient was taken to the operating room where spinal anesthesia was placed and found to be adequate. She was prepped and draped in the usual sterile fashion in the dorsal supine position with a leftward tilt. Nava catheter was in place. SCDs were in place and activated. Cefazolin 2 g IV was given as a preoperative antibiotic. Preoperative timeout was performed. A total of 20 cc of 1% lidocaine with epinephrine was injected into the suture line prior to making the incision. A Pfannenstiel incision was made in the skin with a scalpel and carried through the underlying layer of fascia in a combination of sharp and blunt dissection. The fascia was incised in the midline, and the incision was extended laterally with the Horn scissors. The superior aspect of the fascial incision was grasped with the Benjamín clamps, elevated, and the underlying rectus muscles were dissected off bluntly and sharply using the Horn scissors. Attention was then turned to the inferior aspect of the incision which in a similar fashion was grasped, tented up with Benjamín clamps, and the underlying rectus muscles dissected off bluntly and sharply using Horn scissors. The rectus muscles were then in the midline. The peritoneum was identified, tented up, and entered bluntly. The peritoneal incision was extended superiorly and inferiorly with good visualization of the bladder. The bladder that blade was then inserted. A bladder flap was not created. The lower uterine segment of the uterus was identified, and incised in a transverse fashion with a scalpel. The uterus was entered bluntly. The uterine incision was extended in a craniocaudal fashion by manual stretch. The bladder blade was removed. The was delivered from from vertex position. Baby was wrapped in a warm sterile towel. Delayed cord clamping was performed. After cessation of pulsations, the cord was clamped x2 and cut. The was handed off to the waiting pediatric team. The placenta was removed with manual extraction. The uterus was exteriorized and cleared of all clots clots and debris via manual swipe using [employer] x2. The uterine incision was then repaired in a running locked fashion using 0 Vicryl suture. The incision was reinforced with a running imbricating layer again using 0-Vicryl suture. Excellent hemostasis was obtained. Attention was then turned to the salpingectomy portion of the procedure. The left Fallopian tube was grasped with Yana clamps and elevated. It was resected from the underlying mesosalpinx with the LigaSure bipolar sealing and cutting device until the insertion point at the uterine cornua was met. At that point, the fallopian tube was sealed and transected at ints insertion point into the uterine cornua. The tube was removed from the field. This process was repeated on the right side. Both tubes were sent in a single specimen to [facility]. The uterus was returned to the abdomen. The gutters were cleared of all clots and debris. The pelvis was irrigated with warm normal saline. The uterine defect was well visualized in normal anatomic position it was noted again to be hemostatic. The peritoneum was then reapproximated with 2-0 Vicryl in a running fashion. The rectus muscles were then reapproximated using interrupted [id number] sutures using 2-0 Chromic. Good hemostasis was noted. The fascia was then closed using 0 Vicryl in a running fashion starting from the left lateral edge to the midline. A second suture was used to close the fascia in a running fashion starting from the right lateral edge and meeting in the midline, again using 0-Vicryl. The subcutaneous tissue was then irrigated and closed using 2-0 chromic in a running subcutaneous suture. Skin was closed in a running subcuticular suture using 4-0 Monocryl. Steri-Strips were applied to reinforce the incision and dressing was applied. Procedure was well-tolerated and without complication. Sponge lap and needle counts were correct x2. Patient was taken to recovery room in stable condition. IVETTE Anderson CNM, assisted with retraction, delivery of the infant, and suturing.
[2021-05-08] MEDS ORDERED: fentaNYL 100 MCG/2 ML VIAL IVP PRN (10:34)
[2021-05-08] MEDS ORDERED: KETOROLAC 30 MG/ML VIAL IVP SCH (11:00)
[2021-05-08] MEDS ORDERED: ceFAZolin 2 GM in SODIUM CHLORIDE 0.9% MINIBAG 100 ML IV SCH (11:00)
--- NOTE | 2021-05-08 12:06 | ANESTHESIA POST OP EVALUATION ---
Anesthesia Post Eval - Post Anesthesia Eval Vitals: Last Vital Signs Temp 36.9 C 05/08/21 11:00 Pulse 75 05/08/21 11:00 Resp 14 05/08/21 11:00 BP 116/60 05/08/21 11:00 Pulse Ox 99 05/08/21 11:00 CV Function Including HR & BP: Stable Pain Control: Satisfactory Nausea & Vomiting: Negative Mental Status: Baseline Respiratory Status: Airway Patent Hydration Status: Satisfactory Anesthesia Complications: None
[2021-05-08] MEDS: oxyCODONE 5 MG TABLET PO PRN ×4 (12:09→23:21)
[2021-05-08] MEDS: SIMETHICONE CHEW 80 MG TABLET PO PRN (12:09)
[2021-05-08] MEDS: KETOROLAC 30 MG/ML VIAL IVP SCH ×2 (14:37→19:39)
[2021-05-08] MEDS ORDERED: ceFAZolin 2 GM in SODIUM CHLORIDE 0.9% MINIBAG 100 ML IV ONE (16:00)
[2021-05-08] MEDS: ACETAMINOPHEN 500 MG TABLET PO SCH (16:31)
[2021-05-08] MEDS ORDERED: SODIUM CHLORIDE FLUSH 0.9% 10 ML SYRINGE IVP SCH (17:00)
[2021-05-08] MEDS ORDERED: DOCUSATE SODIUM 100 MG CAPSULE PO SCH (21:00)
[2021-05-09] MEDS: ACETAMINOPHEN 500 MG TABLET PO SCH ×3 (00:30→16:25)
[2021-05-09] MEDS: KETOROLAC 30 MG/ML VIAL IVP SCH (01:58)
[2021-05-09] MEDS: oxyCODONE 5 MG TABLET PO PRN ×4 (03:34→18:11)
[2021-05-09 06:17] LABS: BASOPHILS % (AUTO) 0.2 %; EOSINOPHILS % (AUTO) 0.3 %; HCT - HEMATOCRIT 27.4 % (37.0-47.0); HGB - HEMOGLOBIN 9.1 g/dL (12.0-16.0); LYMPHOCYTES % (AUTO) 12.5 %; MEAN CORPUSCULAR HEMOGLOBIN 29.9 pg (27.0-31.0); MEAN CORPUSCULAR HGB CONC 33.2 g/dL (32.0-36.0); MEAN CORPUSCULAR VOLUME 90.1 fL (81.0-99.0); MEAN PLATELET VOLUME 10.1 fL (7.9-10.8); NEUTROPHILS % (AUTO) 75.8 %; PLT - PLATELET COUNT 163 10^3/uL (130-450); RED BLOOD COUNT 3.04 10^6/uL (4.20-5.40); RED CELL DISTRIBUTION WIDTH 17.3 % (12.0-15.0); WHITE BLOOD COUNT 15.4 x10^3/uL (4.8-10.8)
[2021-05-09 06:21] LABS: ABNORMAL LYMPHS % (MANUAL) 0 %
[2021-05-09 06:57] LABS: BAND NEUTROPHILS % (MANUAL) 3 %; DIFFERENTIAL COMMENT MANUAL DIFFERENTIAL; LYMPHOCYTES # (MANUAL) 2.2 10^3/uL (1.5-3.5); LYMPHOCYTES % (MANUAL) 8 %; MONOCYTES # (MANUAL) 1.5 10^3/uL (0.0-1.0); NEUTROPHILS # (MANUAL) 11.7 10^3/uL (1.5-6.6); REACTIVE LYMPHS % (MANUAL) 6 %
[2021-05-09] MEDS: SIMETHICONE CHEW 80 MG TABLET PO PRN (08:44)
[2021-05-09] MEDS: IBUPROFEN 600 MG TABLET PO SCH ×2 (08:55→14:56)
[2021-05-09 09:42] VITALS: BP 108/66
[2021-05-09] MEDS ORDERED: FERRIC GLUCONATE 125 MG in SODIUM CHLORIDE 0.9% 100ML 100 ML IV ONE (14:19)
[2021-05-09] MEDS ORDERED: IBUPROFEN 600 MG TABLET PO SCH (16:00)
--- NOTE | 2021-05-09 16:38 | PROVIDER PROGRESS NOTE ---
Subjective - Prog Note Date Prog Note Date: 05/09/21 Prog Note Time: 13:00 - Subjective Subjective: was transported to [facility] overnight for TTNB. Patient is anxious to discharge to be with infant. Wants to confirm bed available for her to rest at NICU. Patient is up and ambulating, tolerating po, and voiding. Pain is well managed with pain medications. Minimal bleeding. Objective - Vital Signs/Intake & Output Reviewed Vital Signs: Yes Vital Signs: 98.4 75 108/66 18 Intake & Output: Intake & Output 05/06/21 05/07/21 05/08/21 05/09/21 23:59 23:59 23:59 23:59 Intake Total 1900 1150 Output Total 875 2750 Balance 1025 -1600 - Objective General Appearance: positive: No acute distress Respiratory: positive: No respiratory distress, Breath sounds nml Cardiovascular: positive: Regular rate & rhythm Peripheral Pulses: 2+ Radial (R), 2+ Radial (L), 2+ Dorsalis pedis (R), 2+ Dorsalis pedis (L) Abdomen: positive: Other (appropriately tender, ND. FF below umbi. soft. Dressing removed, steris with ss drainage at left aspect, otherwise CDI) Skin: positive: Color nml, Warm, Dry Extremities: positive: Non-tender, No pedal edema Neurologic/Psychiatric: positive: Oriented x3 - Lab Results Fish Bones: 05/09/21 06:11 Other Labs: Lab Results x24hrs 05/09/21 Range/Units 06:11 WBC 15.4 H (4.8-10.8) x10^3/uL RBC 3.04 L (4.20-5.40) 10^6/uL Hgb 9.1 L (12.0-16.0) g/dL Hct 27.4 L (37.0-47.0) % MCV 90.1 (81.0-99.0) fL MCH 29.9 (27.0-31.0) pg MCHC 33.2 (32.0-36.0) g/dL RDW 17.3 H (12.0-15.0) % Plt Count 163 (130-450) 10^3/uL MPV 10.1 (7.9-10.8) fL Neut # (Auto) Not Reportable Lymph # (Auto) Not Reportable [place] # (Auto) Not Reportable Eos # (Auto) Not Reportable Baso # (Auto) Not Reportable Absolute Nucleated RBC Not Reportable Total Counted 100 Band Neuts % (Manual) 3 (0 - 10) % Reactive Lymphs % (Man) 6 % Abnorm Lymph % (Manual) 0 % Nucleated RBC % Not Reportable Neutrophils # (Manual) 11.7 H (1.5-6.6) 10^3/uL Lymphocytes # (Manual) 2.2 (1.5-3.5) 10^3/uL Monocytes # (Manual) 1.5 H (0.0-1.0) 10^3/uL Eosinophils # (Manual) 0.0 (0-0.7) 10^3/uL Basophils # (Manual) 0.0 (0-0.1) 10^3/uL Differential Comment MANUAL DIFFERENTIAL Assessment/Plan - Problem List (1) deliv NOS-unsp Impression: POD#1: Doing well. 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
--- NOTE | 2021-05-09 16:44 | Discharge Plan ---
Discharge Plan Problem Reviewed?: Yes Disposition: Home, Self Care Condition: Good Prescriptions: Acetaminophen [Acetaminophen Extra Strength] 1,000 mg PO Q8H PRN #60 tablet PRN Reason: Pain Docusate Sodium 100Mg Capsule [Colace 100Mg Capsule] 100 - 200 mg PO BID PRN #60 cap PRN Reason: Constipation Ibuprofen [Motrin] 600 mg PO Q6H PRN #60 tab PRN Reason: Pain oxyCODONE [Roxicodone] 2.5 - 5 mg PO Q4H PRN #24 tablet PRN Reason: Severe Pain Diet: Regular Activity Restrictions: Additional Comments (see below) Additional Instructions or Follow Up instructions: Nothing in the vagina for 6 weeks: No intercourse, tampons, douching Call for: -Fever greater than 100.5 -Pain that does not improve with pain medication -Heavy bleeding in which you are soaking a pad an hour for 2 hours in a row -Incision becomes hot, hard, red, starts to open, or leaks foul smelling fluid No lifting more than 10# for 4 [address] while on narcotics Ok to shower. Let water run over the incision. Do not soap, scrub, or apply lotion. Pat dry with a clean towel or enrrique a chair and couch maker. The surgical stickers will start to peel off and you can remove them when they do. Otherwise, the prov ider will remove them at your one week follow-up appointment. OK to use an unscented sanitary napkin or clean washcloth to keep the incision dry if the belly folds over the incision. MEDICATIONS: Ibuprofen 600 mg by mouth every 6 hours as needed for pain Acetaminophen 500-1000 mg by mouth every 8 hours as needed for pain Docusate 100-200 mg by mouth twice a day as needed for constipation Oxycodone 2.5-5 mg by mouth every 4 hours as needed for pain No Smoking: If you smoke, Please STOP! Call for help. Follow-up with: Linda Ortega MD [Provider Admit Priv/Credential] -
--- NOTE | 2021-05-09 16:46 | DISCHARGE SUMMARY ---
"Discharge Summary Admit Date: 05/08/21 Discharge Date: 05/09/21 Discharging Provider: Shannon Condition at Discharge: Good Discharge Disposition: 01 Home, Self Care - DIAGNOSES Admission Diagnoses: IUP at 39+0 wga Hx of prior Desires sterilization Discharge Diagnoses with Status of Each Condition: Same and delivery of term gestation S/p sterilization via bilateral salpingectomy - HPI History of Present Illness: Patient is a 26 yo at 39+0 here for repeat CS and BTL. No changes in health hx since time of prior exam. +FM. No LOF/VB/CTX. PNC HX as follows: DATING: LMP 08/08/2020 gives KATHRIN 05/15/2020 US on 10/21/2020 at 9 [id number] KATHRIN 05/22/2020 (Given that the discrepancy is not MORE than 7 days, no change in LMP dating as per ACOG CO #700) Vertex by BSUS Clotrimazole for yeast infxn- resolved Triamcinolone for axillary rash- improved in axilla but now has itching all over, including palms -BA and LFTs ordered- wnl A pos /Rub imm Genetic testing: QUAD and carrier screen wnl FAS CL 4.3, EFW 33%ile, FAS wnl, posterior, 3VC Influenza 10/07/2020 TDAP complete Glucola 112 HCT 33.2 on iron supplementation HSV: denies genital HSV GBS: at 36 weeks- positive Breast pump RX: given PAP 2019 NILM MOD: repeat CS Contraception: Desires BTL Signed [facility] consents 02/21/21. Patient provided with copy. - CONSULTS | PROCEDURES Procedures: Repeat low transverse and bilateral salpingectomy - HOSPITAL COURSE Hospital Course: Patient was admitted for the aforementioned procedure at 39+0 wga by LMP and 9w4d us. Procedure was uncomplicated. Surgical findings showed uterus with heart shaped configuration with left horn disproportionately large suggesting bicornuate uterus. Mildly adherent placenta removed with manual extraction. Normal appearing ovaries. Left tubes mildly adherent to the left ovary. Patient delivered a female from vertex presentation with Apgars of 7/8. BW 2765 g. Placenta was manually extracted as it was mildly adherent. Patient was given an additional dose of cefazolin after delivery for prophylaxis. Patient had an uncomplicated postoperative course. Infant was transported to [place] for transient tachypnea of the . Patient requested discharge on post-operative day #1 to go to [place]. She had been progressing well with her recovery and it was deemed appropriate to discharge once appropriate room for rest had been identified at [place]. Patient received an iron infusion prior to discharge. Routine discharge instructions given. A pos/Rub imm - ALLERGIES Allergies/Adverse Reactions: Allergies Allergy/AdvReac Type Severity Reaction Status Date / Time No Known Drug Allergies Allergy Verified 11/08/20 10:13 - MEDICATIONS Home Medications: Ambulatory Orders Medication Instructions Recorded Confirmed HYDROcod/ACETAM 5/325 [[place] 5/325] 1 ea PO Q6H PRN #8 tablet 11/08/20 Ondansetron Odt [Zofran] 4 mg TL Q6H PRN #10 tablet 11/08/20 No122/Iron/Folic Acid 1 each PO DAILY 11/08/20 11/08/20 [ Multi Tablet] Acetaminophen [Acetaminophen Extra 1,000 mg PO Q8H PRN #60 tablet 05/09/21 Strength] Docusate Sodium 100Mg Capsule 100 - 200 mg PO BID PRN #60 cap 05/09/21 [Colace 100Mg Capsule] Ibuprofen [Motrin] 600 mg PO Q6H PRN #60 tab 05/09/21 oxyCODONE [Roxicodone] 2.5 - 5 mg PO Q4H PRN #24 tablet 05/09/21 - LABS Result Diagrams: 05/09/21 06:11 - FOLLOW UP Follow Up: One week for incision check - TIME SPENT Time Spent in Discharge (Minutes): 30"
--- NOTE | 2021-05-09 19:27 | Labor Flowsheet ---
Labor Flowsheet Datetime Report Generated by CPN: 05/09/2021 19:27 Datetime: 05/09/2021 06:48 VAGINAL EXAM Membranes Ruptured Date/Time: 05/08/2021 08:27 Membranes Rupture Method: Artificial Amniotic Fluid Color: Clear Amniotic Fluid Amount: Moderate Amniotic Fluid Odor: Normal
[2021-05-10 16:05] LABS: HIV AG/AB 4TH GEN NON-REACTIVE (NON-REACTIVE)
== END 2021-05-09 18:40 | disposition home or self-care (01) | DRG 785 ==
LOC: FBP 05:35
PROVIDERS: ADMIT Obstetrics & Gynecology; ATTEND Obstetrics & Gynecology
PROC: 0UT70ZZ Resection of Bilateral Fallopian Tubes, Open Approach (ICD-10-PCS; 2021-05-08)
PROC: 10D00Z1 Extraction of Products of Conception, Low, Open Approach (ICD-10-PCS; principal; 2021-05-08 07:30)
DX: O34.211 Maternal care for low transverse scar from previous cesarean delivery (principal); Z3A.39 39 weeks gestation of pregnancy; Z37.0 Single live birth; Z30.2 Encounter for sterilization; O34.03 Maternal care for unspecified congenital malformation of uterus, third trimester; Q51.3 Bicornate uterus
CPT/HCPCS: 36415; 85025; 87389; A9270; J0131; J0690; J2916; J7120; 88302